=== PATIENT | female | born 1990 | race Caucasian/White ===

== ENCOUNTER 2016-07-18 22:44 | Emergency (ER) | payer BC, OTHER ==
[~2016-07-18] VITALS: Ht 157.5 cm; Wt 71.4 kg
[2016-07-18 22:49] VITALS: TEMP 36.8; Ht 157.5 cm; Wt 71.4 kg
[2016-07-18] MEDS ORDERED: DiphenhydrAMINE HCL 50 MG/ML VIAL IV STA (22:57)
[2016-07-18] MEDS ORDERED: LIDOCAINE HCL 2% VISC SOLN 20 ML UDC PO STA (22:57)
[2016-07-18] MEDS ORDERED: FAMOTIDINE 20MG/102 ML D5W IV STA (22:57)
[2016-07-18] MEDS ORDERED: ALUMINUM/MAGNESIUM SUSP 30 ML UDC PO STA (22:57)
[2016-07-18] MEDS ORDERED: DEXAMETHASONE SOD INJ 10 MG/ML VIAL IV ONE (23:00)
[2016-07-18] MEDS ORDERED: DOXY1TAB6 PO (23:22)
[2016-07-18] MEDS ORDERED: FRCT/ PO (23:22)
[2016-07-18] MEDS ORDERED: SPIR25TA PO (23:22)
[2016-07-18 23:25] LABS: BASO % 0.3 %; BASO ABS # 0.02 K/uL (0-0.2); COMPLETE YES; HEMATOCRIT 41.5 % (37-47); IG% 0.1 %; LYMPH % 37.1 %; MEAN CELL VOLUME 85.7 fL (80-100); MEAN CORPUSCULAR HGB CONC 34.9 g/dl (32-36); MONO % 7.1 %; NEUT % 54.4 %; PLATELET COUNT 226 K/uL (130-400); RED BLOOD COUNT 4.84 M/uL (4.2-5.4); WHITE BLOOD COUNT 6.74 K/uL (4.8-10.8)
[2016-07-18 23:32] VITALS: O2SAT 98
[2016-07-18 23:42] LABS: BLOOD UREA NITROGEN 12 mg/dl (7-18); BUN/CREATININE RATIO 15.3 (10-20); CALCIUM 9.9 mg/dl (8.5-10.1); CARBON DIOXIDE 27 mmol/L (21-32); CHLORIDE 101 mmol/L (98-107); CREATININE 0.79 mg/dl (0.60-1.20); GLUCOSE 77 mg/dl (70-99); POTASSIUM 3.6 mmol/L (3.5-5.1); SODIUM 137 mmol/L (136-145)
[2016-07-18 23:44] LABS: PREG INTERNAL NEGATIVE QC NEG CLEAR BACKGROUND; PREG INTERNAL POSITIVE QC POS CONTROL LINE
[2016-07-19] MEDS ORDERED: ACETAMINOPHEN 500 MG TAB PO STA (00:27)
[2016-07-19] MEDS ORDERED: EPINEPHRINE ADULT AUTO-INJECT 0.3 MG SYR IM STA (00:27)
[2016-07-19] MEDS ORDERED: ACET325T82 (00:51)
[2016-07-19] MEDS ORDERED: PRED50TA PO (01:48)
--- NOTE | 2016-07-19 01:54 | EMERGENCY ROOM VISIT NOTE ---
History First contact with patient: 22:53 Chief Complaint: ALLERGIC REACTION Stated Complaint: FEELS LIKE THROAT IS SWELLING Nursing Triage Summary: Pt reports she was having acid reflux this evening and took dinesh-seltzer unaware that it contained ASA which she is allergic to. Pt reporting she is having a difficult time swollowing and is concerned about allergic reaction. Typical reaction is hives on face. Denies any hives at this time. Denies SOB. History of Present Illness The patient is a 26 year old female who presents to the Emergency Room with complaints of allergic reaction after taking Dinesh-Branford tonight. Patient states she's been having left-sided chest pain for the past few days that is worse with palpation and movement and better with rest and try to take some Dinesh -Branford to see this might help out. She describes the pain as aching, ranging in severity 4 out of 10. It does not radiate. She did not relate localized that this had aspirin in it. Patient complains of throat tightness and itchiness. No history of anaphylaxis. She then came here. Patient denies rash , tongue swelling, facial swelling, dyspnea, abdominal pain, nausea, vomiting, diarrhea. Review of Systems See HPI for pertinent positives & negatives. A total of 10 systems reviewed and were otherwise negative. Past Medical/Surgical History None Social History Smoking Status: Never Smoker Drug Use: none Marital Status: single Occupation Status: employed Current/Historical Medications Scheduled Doxycycline Hyclate (Doxycycline Hyclate), 1 TAB PO DAILY Prednisone (Prednisone), 50 MG PO DAILY Spironolactone (Aldactone), 25 MG PO DAILY Scheduled PRN Acetamin/Butalbital/Caffeine (Fioricet), 1 TAB PO UD PRN for Migraine Allergies Coded Allergies: Aspirin (Verified Allergy, Intermediate, hives, throat swelling., 07/18/16) Penicillins (Verified Allergy, Intermediate, hives, 07/18/16) Physical Exam Vital Signs Date Time Temp Pulse Resp B/P Pulse Ox O2 Delivery O2 Flow Rate FiO2 07/19/16 00:39 93 15 144/97 98 Room Air 07/18/16 23:45 106 07/18/16 23:32 98 Room Air 07/18/16 23:00 98 Room Air 07/18/16 22:49 36.8 94 20 165/91 100 Room Air Physical Exam VITALS: Vitals are noted on the nurse's note and reviewed by myself. Vital signs stable. GENERAL: Pleasant female, in no acute distress, nondiaphoretic, well-developed well-nourished. SKIN: The skin was without rashes, erythema, edema, or bruising. There is no tenting of the skin. Capillary reflex less than 2 seconds. HEAD: Normocephalic atraumatic. No facial swelling EARS: External auditory canals clear, tympanic membranes pearly la without erythema or effusion bilaterally. EYES: Pupils equal round and reactive to light and accommodation. Conjunctivae without injection, sclerae without icterus. Extraocular movements intact. NOSE: Patent, turbinates without inflammation or discharge. MOUTH: Mucous membranes moist. No lip swelling Pharynx without erythema or exudate. Uvula midline. Airway patent. Tongue does not deviate. NECK: Supple without nuchal rigidity. No lymphadenopathy. No thyromegaly. Cervical spine is nontender. No JVD. HEART: Regular rate and rhythm without murmurs gallops or rubs. Left-sided chest tender to palpation easily reproducing symptoms LUNGS: Clear to auscultation bilaterally without wheezes, rales or rhonchi. No dullness to percussion. No retractions or accessory muscle use. ABDOMEN: Positive bowel sounds x 4. Normal tympanic percussion. Soft, nontender, without masses or organomegaly. Rodriguez sign negative. No guarding or rebound tenderness. MUSCULOSKELETAL: No muscle atrophy, erythema, or edema noted. NEURO: Patient was alert and oriented to person place and time. Normal sensation to light and sharp touch. No focal neurological deficits. Medical Decision & Procedures Laboratory Results 07/18/16 23:10 Red Blood Count 4.84, Mean Corpuscular Volume 85.7, Mean Corpuscular Hemoglobin 30.0, Mean Corpuscular Hemoglobin Concent 34.9, Mean Platelet Volume 9.0, Neutrophils (%) (Auto) 54.4, Lymphocytes (%) (Auto) 37.1, Monocytes (%) (Auto) 7.1, Eosinophils (%) (Auto) 1.0, Basophils (%) (Auto) 0.3, Neutrophils # (Auto) 3.66, Lymphocytes # (Auto) 2.50, Monocytes # (Auto) 0.48, Eosinophils # (Auto) 0.07, Basophils # (Auto) 0.02 07/18/16 23:10 Test 07/18/16 23:10 07/19/16 01:00 White Blood Count 6.74 K/uL (4.8-10.8) Red Blood Count 4.84 M/uL (4.2-5.4) Hemoglobin 14.5 g/dL (12.0-16.0) Hematocrit 41.5 % (37-47) Mean Corpuscular Volume 85.7 fL (80-100) Mean Corpuscular Hemoglobin 30.0 pg (25-34) Mean Corpuscular Hemoglobin Concent 34.9 g/dl (32-36) Platelet Count 226 K/uL (130-400) Mean Platelet Volume 9.0 fL (7.4-10.4) Neutrophils (%) (Auto) 54.4 % Lymphocytes (%) (Auto) 37.1 % Monocytes (%) (Auto) 7.1 % Eosinophils (%) (Auto) 1.0 % Basophils (%) (Auto) 0.3 % Neutrophils # (Auto) 3.66 K/uL (1.4-6.5) Lymphocytes # (Auto) 2.50 K/uL (1.2-3.4) Monocytes # (Auto) 0.48 K/uL (0.11-0.59) Eosinophils # (Auto) 0.07 K/uL (0-0.5) Basophils # (Auto) 0.02 K/uL (0-0.2) RDW Standard Deviation 39.8 fL (36.4-46.3) RDW Coefficient of Variation 12.7 % (11.5-14.5) Immature Granulocyte % (Auto) 0.1 % Immature Granulocyte # (Auto) 0.01 K/uL (0.00-0.02) Anion Gap 9.0 mmol/L (3-11) Est Creatinine Clear Calc Drug Dose 100.8 ml/min Estimated GFR () 120.6 Estimated GFR (Non- 104.0 BUN/Creatinine Ratio 15.3 (10-20) Calcium Level 9.9 mg/dl (8.5-10.1) Human Chorionic Gonadotropin, Qual NEG (NEG) Troponin I < 0.015 ng/ml (0-0.045) Medications Administered Medications (Trade) Dose Ordered Sig/Francisco Route Start Time Stop Time Status Last Admin Dose Admin Dexamethasone Sodium Phosphate (Decadron Inj) 10 mg NOW ONCE IV 07/18/16 23:00 07/18/16 23:01 DC 07/18/16 23:21 10 MG Diphenhydramine HCl (Benadryl Inj) 50 mg NOW STAT IV 07/18/16 22:57 07/18/16 22:59 DC 07/18/16 23:21 50 MG Famotidine (Pepcid 20mg/100 ml) 20 mg ONE STAT IV 07/18/16 22:57 07/18/16 22:59 DC 07/18/16 23:21 20 MG Lidocaine HCl (Viscous Lidocaine 2% Soln) 10 ml NOW STAT PO 07/18/16 22:57 07/18/16 22:59 DC 07/18/16 23:21 10 ML Al Hydroxide/Mg Hydroxide (Maalox Susp) 30 ml NOW STAT PO 07/18/16 22:57 07/18/16 22:59 DC 07/18/16 23:21 30 ML Acetaminophen (Tylenol Tab) 1,000 mg NOW STAT PO 07/19/16 00:27 07/19/16 00:28 DC 07/19/16 00:40 1,000 MG Epinephrine (Epipen) 0.3 mg NOW STAT IM 07/19/16 00:27 07/19/16 00:28 DC 07/19/16 00:40 0.3 MG ED Course Prior records/ancillary studies reviewed. Triage Nursing notes reviewed. Additional history obtained from friends The patient's history was concerning for possible allergic reaction. Differential diagnosis: Etiologies such as allergic reaction, anaphylaxis, urticaria, Silva-Rudy syndrome, toxic epidermal necrolysis, erythema multiforme, cellulitis, angina, AK, pericarditis, myocarditis, aortic dissection, pleurisy, pneumothorax, PE, pneumonia, pneumomediastinum, esophagitis, esophageal spasm, GERD, perforated esophagus, perforated duodenal ulcer, pancreatitis, cholecystitis, costochondritis, musculoskeletal, bronchitis, URI, well as others were entertained. Physical examination: As above. ER treatment provided: Continuous cardiac monitoring Benadryl 50 mg IV Pepcid 20 mg IV Decadron 10 mg IV On reassessment the patient felt better. Diagnostic interpretation by me: EKG: Normal sinus, normal intervals, no acute ST-T wave changes. Impression normal sinus rhythm interpreted by myself 2 sets of negative troponins 2 hours apart. Chest x-ray with no acute consolidation, pneumothorax or free air per my interpretation It appears the patient had an allergic reaction from the medication that she took who also has costochondritis. The above treatment did well to reverse the symptoms. After prolonged monitoring and frequent reassessments the patient did very well and symptoms resolved. The patient was counseled on the spectrum of this disease process and told to avoid potential triggers. I gave my usual and customary discussion regarding this issue. Patient had 2 sets of negative 2 hours apart. Normal EKG. Negative x-ray. She is advised to try Tylenol for the pain and stretch the area out. She is advised follow-up family care in a few days or here in the ER sooner for chest pain, difficulty breathing, allergic reaction, worsening signs or symptoms or as needed. By the evaluation outlined above emergent etiologies such as recurring anaphylaxis, anaphylatic shock, airway compromise, Silva-Rudy syndrome, toxic epidermal necrolysis, erythema multiforme, infectious etiologies, as well as others were deemed relatively unlikely. The pt informed about the findings as listed above. All questions were answered and pleased with the treatment. Return instructions were outlined and the patient was discharged in stable condition. Outpatient prescription management: EpiPen prednisone Referral: The patient was referred back to primary care physician for follow-up in 2-3 days for a recheck of the current condition. Case reviewed with my attending Medical Decision As above Impression Primary Impression: Costochondritis, acute Additional Impression: Allergic reaction Departure Information Prescriptions Prednisone (Prednisone) 50 Mg Tab 50 MG PO DAILY for 4 Days, #4 TAB Prov: Marybeth Grant .DASHA 07/19/16 Referrals Omer Medina D.O. (PCP) Patient Instructions My [facility] Problem Qualifiers
[2016-07-19 01:55] VITALS: BP 149/106; PULSE 98; O2SAT 99
--- NOTE | 2016-07-19 07:13 | DIAGNOSTIC IMAGING REPORT ---
CHEST ONE VIEW PORTABLE CLINICAL HISTORY: CHEST PAIN dyspnea COMPARISON STUDY: No previous studies for comparison. FINDINGS: The bones soft tissues and hemidiaphragms are normal. The cardiomediastinal silhouette is normal. The lungs are clear. The pulmonary vasculature is normal. IMPRESSION: Negative chest. Electronically signed by: Teodoro Yang M.D. 07/19/2016 7:12 AM Dictated Date/Time: 07/19/2016 7:12 AM
== END 2016-07-19 01:55 | disposition home or self-care (01) ==
LOC: C.EDB 22:46
DX: M94.0 Chondrocostal junction syndrome [Tietze] (principal); T78.40XA Allergy, unspecified, initial encounter; X58.XXXA Exposure to other specified factors, initial encounter; Z79.899 Other long term (current) drug therapy